=== PATIENT | female | born 2000 | race Two or more races ===

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

== ENCOUNTER 2023-06-24 01:42 | Emergency (ER) | payer OTHER ==
[2023-06-24 01:56] VITALS: BP 157/87; PULSE 77; RESP 18; TEMP 97.6; BMI 33.8
[2023-06-24] MEDS ORDERED: ACETAMINOPHEN 500 MG TABLET (FP) PO ONE (04:35)
[2023-06-24] MEDS ORDERED: ACETAMINOPHEN 500 MG TABLET (FP) ONE (04:36)
== END 2023-06-24 04:37 | disposition home or self-care (01) ==
LOC: JER 01:42
DX: M79.601 Pain in right arm (principal); M54.50 Low back pain, unspecified; M54.2 Cervicalgia; M54.6 Pain in thoracic spine; V49.50XA Passenger injured in collision with unspecified motor vehicles in traffic accident, initial encounter
CPT/HCPCS: 72050-TC-FY; 72070-TC-FY; 72100-TC-FY; 84703; 99284-25